=== PATIENT | male | born 1960 | race Two or more races ===

== ENCOUNTER 2021-10-30 09:45 | Emergency (ER) | payer SELFPAY ==
[~2021-10-30] VITALS: Ht 172.7 cm; Wt 72.6 kg
[2021-10-30 15:15] VITALS: BP 135/85
== END 2021-10-30 15:18 | disposition home or self-care (01) ==
LOC: ER 09:45
DX: F41.9 Anxiety disorder, unspecified (principal); Z59.00 Homelessness unspecified
CPT/HCPCS: 73120